=== PATIENT | male | born 1940 | race Caucasian/White ===

== ENCOUNTER 2017-09-18 14:43 | Inpatient (IN) | payer MEDICARE ==
[~2017-09-18] VITALS: Ht 172.7 cm; Wt 123.2 kg
--- NOTE | ~2017-09-18 | EKG ---
[place], [place] ELECTROCARDIOGRAM REPORT NAME: TORSTEN GUTHRIE UNIT #: [id number] ROOM: 424 DOCTOR: MADELINE FRANCIS MD,RAMON BIRTHDATE: [birth year] DOS: 09/18/2017 TIME: 4:08 p.m. Sinus tachycardia noted, heart rate of 111 beats per minute. RAMON CORREA MD CM:EKGRPT:ELECTROCARDIOGRAM REPORT [id number] RAMON FRANCIS MD
--- NOTE | ~2017-09-18 | CON ---
[place], [place] REPORT OF CONSULTATION NAME: TORSTEN GUTHRIE [facility] #: [id number] UNIT #: [id number] ROOM: 424 DOCTOR: MADELINE FRANCIS MDRAMON BIRTHDATE: [birth year] DOS: 09/19/2017 PULMONARY CONSULTATION, EVALUATION, AND MANAGEMENT CONSULTATION REQUESTED BY: Hospitalist Service. REASON FOR CONSULTATION: For assessment of COPD. HISTORY OF PRESENT ILLNESS: This is a 76-year-old white male [facility]. The patient was seen in the [facility] yesterday. He was seen there for the symptoms of having increased shortness of breath ongoing progressively in the past one week. The symptoms were associated with increased weight gain and edema. The patient also reported symptoms of productive cough with thick sputum expectoration, sometimes yellowish in color. He denies symptoms of chest pain. The patient denies any symptoms of wheezing with that. The symptoms have been noted progressively worsening for this patient. After assessment in the [facility], the patient was advised to go to the Emergency Room, [facility]. He presented to the Emergency Room where he has been subsequently assessed and hospitalized for further care. The patient stated partial reduction in respiratory symptoms in the past 24 hours since hospitalization. REVIEW OF SYSTEMS: CONSTITUTIONAL: He does complain of symptoms of fatigue and tiredness and symptoms of fever or chills. EYES: Denies any burning, redness, or tenderness. EARS, NOSE, AND THROAT: Denies sore throat, hoarseness, otalgia, postnasal drainage or epistaxis. CARDIOVASCULAR: Denies anginal pain. EXTREMITIES: Noted with edema of the lower extremity increasing gradually. Denies any pain in the lower extremities upon walking. GASTROINTESTINAL: No dysphagia, nausea, vomiting, diarrhea, abdominal pain, hematemesis, melena, or hematochezia. Denies any symptoms of dysphagia, abnormal weight loss. GENITOURINARY: No dysuria, suprapubic pain, or hematuria. MUSCULOSKELETAL: No acute joint pain, redness, or tenderness. CENTRAL NERVOUS SYSTEM: No dizziness, headache, diplopia, syncopal episodes or tingling sensation of the extremities. Remaining systems were reviewed. They were noted all negative. PAST MEDICAL HISTORY: 1. Noted as COPD, longstanding. 2. Chronic hypoxic respiratory failure, use of oxygen supplementation 3 liters nasal cannula continuous at home. 3. Obstructive sleep apnea disorder, nonadherent with the treatment. 4. Type 2 diabetes mellitus. 5. Chronic severe obesity. 6. Hyperlipidemia. 7. Gastroesophageal reflux disease. [place], [place] REPORT OF CONSULTATION NAME: TORSTEN GUTHRIE UNIT #: [id number] ROOM: [facility] DOCTOR: ARSLAN WOODS MDM BIRTHDATE: [birth year] PAST SURGICAL HISTORY: Noted as left carotid endarterectomy in 1993. SOCIAL HISTORY: The patient stated that he is , has 2 children at home. Smoking noted from a younger age 2 packs of cigarettes per day, which was decreased to few cigarettes a day in the last year before quitting smoking. Final tobacco cessation was reported in 03/2017. FAMILY HISTORY: The patient's father at 70 years old with complication of acute myocardial infarction. Mother at 88 years old from natural causes with illnesses such as stroke, dementia, and diabetes. DRUG ALLERGIES: The patient noted as no known drug allergies. CURRENT MEDICATIONS: Administered today were noted use of lisinopril, aspirin, Lovenox for DVT prophylaxis, omeprazole, Solu-Medrol 60 mg b.i.d., Lipitor, nortriptyline at bedtime, metoprolol tartrate, sliding insulin coverage, Mucinex 1200 mg b.i.d., Arnuity Ellipta, DuoNeb q.4 hours, Levaquin, and other p.r.n. medications. The patient was given IV Lasix 20 mg this morning and 20 mg was given yesterday in the Emergency Room. He was also given 125 mg of Solu-Medrol intravenously in the Emergency Room. PHYSICAL EXAMINATION: GENERAL: A 76-year-old white male who has been currently lying in the bed without acute distress. Height of 5 feet 8 inches, weight of 271 pounds, BMI 41. VITAL SIGNS: Normal temperature, respiratory rate 17-18, heart rate of 114 to 105 sinus tachycardia, blood pressure 150/76 to 160/72. Pulse oxygen saturation of the patient recorded on 3 liters 97% saturation. The intake was recorded as 720, output 1200 mL. Last 24 hours, negative fluid balance of 480 mL. HEENT: Head was atraumatic. Eyes nonicterus. NECK: Supple. It was obese. Severe decreased posterior pharyngeal space, high tongue base crowding of soft tissue structures. CARDIOVASCULAR: S1, S2 is audible. LUNGS: The patient was noted without any wheezing or crackles. Breaths are noted mildly decreased bilaterally. ABDOMEN: Soft, very obese. EXTREMITIES: The patient noted with edema of the lower extremities. SKIN: Visible skin, no lesions or rashes. MUSCULOSKELETAL: No deformities. CENTRAL NERVOUS SYSTEM: Cranial nerves 2-12 intact. LABORATORY DATA: The PT/INR noted as normal yesterday on admission. CBC yesterday on admission, WBC count normal, hemoglobin 13.2, hematocrit normal, platelet count were normal. Lactic acid 2.6 initially. The CMP, glucose 290. BUN and creatinine was normal. Alkaline phosphatase mildly elevated at 153. The CBC that was done on 09/19/2017 was noted as normal. PT/PTT this morning was normal. CMP this morning, glucose 127. Remaining CMP normal. The chest x-ray, one-view, does not show any acute abnormality. Large body habitus. CT of the chest was assessed with the patient does not show any acute pulmonary [place], [place] REPORT OF CONSULTATION NAME: TORSTEN GUTHRIE UNIT #: [id number] ROOM: 424 DOCTOR: MADELINE FRANCIS MD,RAMON BIRTHDATE: [birth year] abnormality was noted such as pulmonary infiltration, pleural fluid or any visible pulmonary nodules. IMPRESSION: 1. The patient will be currently admitted to the hospital The patient noted with an acute exacerbation of chronic obstructive pulmonary disease was noted as well as acute congestive heart failure, whether systolic or diastolic dysfunction, unknown. 2. Chronic respiratory failure. Use of oxygen same use. 3. The patient with morbid obesity. 4. History of obstructive sleep apnea disorder nonadherence with the treatment as well, stating that is not helping him. 5. History of long-term tobacco use. Tobacco cessation done in 03/2017. PLAN OF MANAGEMENT: Continue the current dose of Solu-Medrol, bronchodilators and antibiotics for any suspected infection. There was no pneumonia noted. Order the sputum for Gram stain and culture as well. Bronchodilators with oxygen supplementation. Other additional treatment changes will be ordered based on the progression of the illness. Usual care, other supportive plan of management and care plan. Thanks for allowing me to participate in care of this patient. RAMON CORREA MD CM:CONSTR:REPORT OF CONSULTATION 1133 09/19/17 1431 interface
--- NOTE | ~2017-09-18 | PR ---
[place], [place] PROGRESS NOTE NAME: TORSTEN GUTHRIE UNIT #: [id number] ROOM: 424 DOCTOR: RAMON WOODS MD BIRTHDATE: [birth year] DOS: 09/20/2017 PULMONARY PROGRESS NOTE SUBJECTIVE: The patient noted comfortable at this time without any acute distress, stating reduction in symptoms of shortness of breath. Denies any symptoms of chest pain. He does have symptom of mild cough at this time. There were no symptoms of wheezing. OBJECTIVE: VITAL SIGNS: For the patient which were recorded this morning, normal temperature, respiratory rate 20, heart rate 102, blood pressure 148/70. The pulse oxygen saturation of the patient recorded as 100% on 3 liters nasal cannula. The temperature of the patient intake noted as 2400 mL over 2200 mL. HEENT: Examination shows chronic severe obesity. NECK: Supple. Head was atraumatic. CARDIOVASCULAR: S1, S2 is audible. LUNGS: The patient was noted general reduction in the breath sounds bilaterally. ABDOMEN: Soft and obese. EXTREMITIES: Without any acute edema. LABORATORY DATA: CBC of the patient that was done this morning, WBC count 12.2, hemoglobin 12.8, remaining CBC normal. BMP of the patient this morning, glucose 160, BUN normal and creatinine was normal. CO2 34. IMPRESSION: 1. The patient who has been currently noted stable at the present time with the reduction of the symptoms of shortness breath was noted for the patient at the present time. 2. Morbid obesity for the patient with a history of obstructive sleep apnea disorder, nonadherence with the treatment. 3. Acute congestive heart failure as well. 4. Acute exacerbation of chronic obstructive pulmonary disease. PLAN OF TREATMENT: Continue current combination medication, corticosteroids, bronchodilators, and other plan of therapy as in progress. The echocardiogram for this patient was done yesterday assessed by the police aide, Dr. Gomez for the patient reported with findings of very technical limited study, the patient's left ventricular ejection fraction 60-65%. [place], [place] PROGRESS NOTE NAME: TORSTEN GUTHRIE UNIT #: [id number] ROOM: 424 DOCTOR: RAMON WOODS MD BIRTHDATE: [birth year] RAMON CORREA MD CM:PNTRANS 1122 [id number] RAMON FRANCIS MD 09/20/17 1329 interface
[~2017-09-18 14:43] MED LIST: ALBUTEROL2.5 MG/0.5 INH; PREDNISONE10 MG PO; VIBRAMYCIN100 MG PO
[2017-09-18 14:50] VITALS: BP 148/84
[2017-09-18 15:20] LABS: BASO # 0.1 10*3/uL (0.0-0.1); BASO % 0.6 % (0.0-1.0); EOS # 0.1 10*3/uL (0.0-0.4); HEMATOCRIT 41.5 % (42.0-52.0); HEMOGLOBIN 13.2 g/dl (14.0-18.0); LYMPH # 1.7 10*3/uL (1.3-4.4); LYMPH % 16.5 % (27.0-41.0); MEAN CELL VOLUME 93.3 fl (80.0-94.0); MEAN CORPUSCULAR HGB 29.7 pg (27.0-31.0); MEAN CORPUSCULAR HGB CONC 31.8 g/dl (33.0-37.0); MEAN PLATELET VOLUME 10.9 fl (9.6-12.3); MONO # 0.7 10*3/uL (0.1-1.0); MONO % 7.1 % (3.0-9.0); NEUT # 7.4 10*3/uL (2.3-7.9); PLATELET COUNT AUTOMATED 175 10*3/uL (130-400); RED BLOOD COUNT 4.45 10*6/uL (4.50-5.90); RED CELL DISTRI WIDTH 13.5 % (0-14.5)
[2017-09-18 15:27] LABS: INTERNATIONAL NORM RATIO 0.9 (2.0-3.5)
[2017-09-18 15:36] LABS: ALBUMIN 3.2 gm/dl (3.1-4.5); ALKALINE PHOSPHATASE 153 U/L (45-117); BUN 10 mg/dl (7-24); CHLORIDE 102 mmol/L (98-107); CREATININE 0.79 mg/dL (0.70-1.30); SGOT/AST 31 IU/L (3-35); SGPT/ALT 49 U/L (12-78); SODIUM 140 mmol/L (136-145); TOTAL PROTEIN 7.2 gm/dL (6.4-8.2)
[2017-09-18 15:40] LABS: TROPONIN I < 0.015 ng/ml (<0.045)
[2017-09-18 16:00] VITALS: BP 151/80
[2017-09-18 17:25] VITALS: BP 178/80
[2017-09-18 17:30] VITALS: BP 151/70
[2017-09-18 18:34] LABS: BILIRUBIN NEGATIVE (NEGATIVE); BLOOD NEGATIVE (NEGATIVE); CLARITY CLEAR (CLEAR); COLOR YELLOW (YELLOW); GLUCOSE 3+ (NEGATIVE); KETONE 1+ (NEGATIVE); LEUKO ESTERASE NEGATIVE (NEGATIVE); NITRITE NEGATIVE (NEGATIVE); UROBILINOGEN 0.2 E.U./dl (0.2-1.0)
[2017-09-18 18:41] LABS: RBC 0-2 rbc/hpf (0-2)
[2017-09-18 20:00] VITALS: BP 158/76
[2017-09-18] MEDS ORDERED: VENTOLIN 02.5 MG/3 M INH (21:05)
[2017-09-18] MEDS ORDERED: ASPIRIN81 M1 PO (21:06)
[2017-09-18] MEDS ORDERED: Lopressor25 MG PO (21:07)
[2017-09-18] MEDS ORDERED: LISINOPRIL40 MG PO (21:07)
[2017-09-18] MEDS ORDERED: AVELOX400 MG PO (21:08)
[2017-09-18] MEDS ORDERED: ASMANEX HFA13 G1 INH (21:08)
[2017-09-18] MEDS ORDERED: NORTRIPTYLINE10 MG PO (21:09)
[2017-09-18] MEDS ORDERED: OMEPRAZOLE20 M2 PO (21:09)
[2017-09-18] MEDS ORDERED: NIACIN500 M5 PO (21:09)
[2017-09-18] MEDS ORDERED: ROSUVASTATIN CA40 MG PO (21:10)
[2017-09-19] VITALS: BP 160/72
[2017-09-19 06:07] LABS: BASO % 0.5 % (0.0-1.0); HEMATOCRIT 43.6 % (42.0-52.0); HEMOGLOBIN 13.7 g/dl (14.0-18.0); LYMPH # 1.1 10*3/uL (1.3-4.4); MEAN CELL VOLUME 93.4 fl (80.0-94.0); MEAN CORPUSCULAR HGB 29.3 pg (27.0-31.0); MEAN CORPUSCULAR HGB CONC 31.4 g/dl (33.0-37.0); MEAN PLATELET VOLUME 11.3 fl (9.6-12.3); MONO # 0.1 10*3/uL (0.1-1.0); MONO % 1.7 % (3.0-9.0); NEUT % 83.5 % (47.0-73.0); PLATELET COUNT AUTOMATED 195 10*3/uL (130-400); RED BLOOD COUNT 4.67 10*6/uL (4.50-5.90); RED CELL DISTRI WIDTH 13.4 % (0-14.5); WHITE BLOOD COUNT 8.4 10*3/uL (4.8-10.8)
[2017-09-19 06:30] LABS: ALBUMIN 3.3 gm/dl (3.1-4.5); BUN 12 mg/dl (7-24); CHLORIDE 98 mmol/L (98-107); POTASSIUM 3.9 mmol/L (3.5-5.1); SODIUM 138 mmol/L (136-145)
[2017-09-19 06:31] LABS: ACT PARTIAL THROMBO TIME 20.4 SECONDS (20.8-31.5)
[2017-09-19 06:37] LABS: ALKALINE PHOSPHATASE 138 U/L (45-117); CHOLESTEROL 228 mg/dL (<200); CREATININE 0.73 mg/dL (0.70-1.30); HDL CHOLESTEROL 46 mg/dl (40-60); LDL CHOLESTEROL 157 mg/dL (9-159); PHOSPHOROUS 3.7 mg/dL (2.5-4.9); SGOT/AST 25 IU/L (3-35); SGPT/ALT 50 U/L (12-78); THYROID STIM HORMONE (HS) 0.411 uIU/ml (0.358-4.75); TOTAL PROTEIN 7.5 gm/dL (6.4-8.2); TRIGLYCERIDES 126 mg/dl (<150); VLDL CHOLESTEROL 25 mg/dL (6-40)
[2017-09-19 08:00] VITALS: BP 170/78
[2017-09-19] MEDS ORDERED: GLUCOPHAGE1000 MG PO (08:03)
[2017-09-19 08:28] LABS: VITAMIN D, 25-HYDROXY 23.4 ng/mL (30-100)
[2017-09-19 12:00] VITALS: BP 145/68
[2017-09-19 16:00] VITALS: BP 150/91
[2017-09-19 20:00] VITALS: BP 169/77
[2017-09-20 00:34] VITALS: BP 141/68
[2017-09-20 06:34] LABS: BASO % 0.2 % (0.0-1.0); HEMATOCRIT 42.1 % (42.0-52.0); HEMOGLOBIN 12.8 g/dl (14.0-18.0); LYMPH # 1.3 10*3/uL (1.3-4.4); LYMPH % 10.6 % (27.0-41.0); MEAN CELL VOLUME 94.8 fl (80.0-94.0); MEAN CORPUSCULAR HGB 28.8 pg (27.0-31.0); MEAN CORPUSCULAR HGB CONC 30.4 g/dl (33.0-37.0); MEAN PLATELET VOLUME 11.4 fl (9.6-12.3); MONO # 0.7 10*3/uL (0.1-1.0); MONO % 6.1 % (3.0-9.0); NEUT # 10.1 10*3/uL (2.3-7.9); NEUT % 82.4 % (47.0-73.0); PLATELET COUNT AUTOMATED 205 10*3/uL (130-400); RED BLOOD COUNT 4.44 10*6/uL (4.50-5.90); RED CELL DISTRI WIDTH 13.5 % (0-14.5); WHITE BLOOD COUNT 12.2 10*3/uL (4.8-10.8)
[2017-09-20 06:59] LABS: CHLORIDE 101 mmol/L (98-107); CREATININE 0.82 mg/dL (0.70-1.30); POTASSIUM 4.1 mmol/L (3.5-5.1); SODIUM 139 mmol/L (136-145)
[2017-09-20 07:03] LABS: BUN 22 mg/dl (7-24)
[2017-09-20 08:00] VITALS: BP 148/70
[2017-09-20 12:00] VITALS: BP 136/58
[2017-09-20] MEDS ORDERED: VITAMIN D-32000 UNIT PO (13:48)
[2017-09-20] MEDS ORDERED: PREDNISONE10 MG PO (13:50)
[2017-09-20] MEDS ORDERED: DOXYCYCLINE100 M3 PO (13:50)
[2017-09-20] MEDS ORDERED: METFORMIN850 MG PO (13:50)
[2017-09-20] MEDS ORDERED: LASIX20 MG PO (13:50)
== END 2017-09-20 15:20 | disposition home or self-care (01) | DRG 190 ==
LOC: ED 14:43 → EDHOLD 16:45 → 4E 16:45
PROVIDERS: Family Medicine; Physician Assistant
DX: J44.1 Chronic obstructive pulmonary disease with (acute) exacerbation (principal); I50.31 Acute diastolic (congestive) heart failure; J96.11 Chronic respiratory failure with hypoxia; E87.2 Acidosis; Z68.41 Body mass index [BMI] 40.0-44.9, adult; E11.65 Type 2 diabetes mellitus with hyperglycemia; E66.01 Morbid (severe) obesity due to excess calories; I11.0 Hypertensive heart disease with heart failure; D64.9 Anemia, unspecified; I50.9 Heart failure, unspecified; E78.5 Hyperlipidemia, unspecified; G47.33 Obstructive sleep apnea (adult) (pediatric); R00.0 Tachycardia, unspecified; K21.9 Gastro-esophageal reflux disease without esophagitis; Z79.84 Long term (current) use of oral hypoglycemic drugs; Z87.891 Personal history of nicotine dependence; Z99.81 Dependence on supplemental oxygen; Z82.49 Family history of ischemic heart disease and other diseases of the circulatory system; Z79.82 Long term (current) use of aspirin; Z79.899 Other long term (current) drug therapy